=== PATIENT | male | born 1995 | race Caucasian/White ===

== ENCOUNTER 2024-10-04 22:52 | Emergency (ER) | payer BC ==
[~2024-10-04] VITALS: Ht 175.2 cm; Wt 79.4 kg
[2024-10-04] MEDS ORDERED: Tdap Vaccine 0.5 ML SYR (Adult Vaccine) IM ONE (23:05)
[2024-10-04] MEDS ORDERED: Gelatin Sponge 1 EACH SPON T ONE (23:15)
[2024-10-04] MEDS ORDERED: SILVER NITRATE APPLICATOR 1 EACH APP T ONE (23:25)
== END 2024-10-04 23:47 | disposition home or self-care (01) ==
LOC: ED 22:52 → EDSEX 22:56 → ED 22:56
DX: S61.201A Unspecified open wound of left index finger without damage to nail, initial encounter (principal); W26.0XXA Contact with knife, initial encounter; Y93.89 Activity, other specified; Y92.89 Other specified places as the place of occurrence of the external cause; Y99.8 Other external cause status